=== PATIENT | female | born 1980 | race Native Hawaiian/Other Pacific Islander ===

== ENCOUNTER 2019-02-02 11:27 | Emergency (ER) | payer BC ==
[2019-02-02 11:27] VITALS: BMI 33.7
[2019-02-02 11:49] VITALS: RESP 18
[2019-02-02] MEDS ORDERED: Atrop/Hyosc/Scopal/PB Elixir (120 ml) PO STA (12:43)
[2019-02-02] MEDS ORDERED: Alum-Mag Hydrox-Simethicone Susp (30 mL) PO STA (12:43)
[2019-02-02] MEDS ORDERED: Sodium Chloride 0.9% 1,000 ML IV STA (12:43)
[2019-02-02 13:03] LABS: BASO # 0.02 K/mm3 (0.0-2.0); BASO % 0.1 % (0.0-3.0); EOS # 0.1 (0.0-0.7); EOS % 0.5 % (1.5-5.0); HEMOGLOBIN 11.6 g/dL (12.0-16.0); LYMPH # 1.7 (1.2-3.4); LYMPH % 11.7 % (22.0-35.0); MEAN CELL VOLUME 68.4 fl (80.0-105.0); MEAN CORPUSCULAR HEMOGLOBIN 20.9 pg (25.0-35.0); MEAN CORPUSCULAR HGB CONC 30.6 g/dl (31.0-37.0); MONO # 0.5 (0.1-0.6); MONO % 3.4 % (1.0-6.0); PLATELET COUNT 230 10^3/uL (120.0-450.0); RBC 5.54 10^6/uL (3.5-6.1); RED CELL DISTRIBUTION WIDTH 16.5 % (11.5-14.5); WHITE BLOOD COUNT 14.6 10^3/uL (4.5-11.0)
--- NOTE | 2019-02-02 13:03 | ED PDOC ---
Arrival/HPI - General Chief Complaint: Abdominal Pain Historian: Patient - History of Present Illness Narrative History of Present Illness (Text): 02/02/19 12:55 38 year old female, whose past medical history includes cholecystectomy, who presents to the Emergency Department complaining of nausea, vomiting, and diarrhea onset this morning. Patient reports that she was cooking when symptoms began and states that she did not have anything to eat. She also reports that she cooked and ate "egg plant and rice" last night. She endorses taking imodium for her diarrhea and states that she vomited right after. Patient reports a clear, non-bloody episodes of vomiting. She endorses 5 episodes of diarrhea, but denies any bloody stool. She reports an associated abdominal pain, described as cramping. She also reports that she experienced similar symptoms "a couple years ago" where she was found to have a stomach virus, given IV fluids and sent home. She currently denies any fever, chills, dizziness, chest pain, palpitations, SOB, nausea, recent travel or any other complaints. Her LNMP was on January 16. Time/Duration: 24 hours Symptom Onset: Gradual Symptom Course: Unchanged Activities at Onset: Light Context: Home Past Medical History - Provider Review Nursing Documentation Reviewed: Yes - Past History Past History: No Previous - Infectious Disease Hx of Infectious Diseases: None - Cardiac Hx Cardiac Disorders: No - Pulmonary Hx Respiratory Disorders: No - Endocrine/Metabolic Hx Endocrine Disorders: No - Hematological/Oncological Hx Blood Transfusions: No Hx Blood Transfusion Reaction: No - Musculoskeletal/Rheumatological Hx Falls: No - Psychiatric Hx Depression: No Hx Emotional Abuse: No Hx Physical Abuse: No Hx Substance Use: No - Surgical History Hx Section: Yes - Anesthesia Hx Anesthesia Reactions: No Hx Malignant Hyperthermia: No - Suicidal Assessment Feels Threatened In Home Enviroment: No Family/Social History - Physician Review Nursing Documentation Reviewed: Yes Family/Social History: Unknown Family HX Smoking Status: Never Smoked Hx Alcohol Use: No Hx Substance Use: No Allergies/Home Meds Allergies/Adverse Reactions: Allergies No Known Allergies Allergy (Verified 11/10/12 15:17) Review of Systems - Physician Review All systems were reviewed & negative as marked: Yes - Review of Systems Constitutional: absent: Fevers Respiratory: absent: SOB, Cough Cardiovascular: absent: Chest Pain, Palpitations Gastrointestinal: Abdominal Pain, Diarrhea, Nausea, Vomiting Musculoskeletal: absent: Back Pain, Neck Pain Neurological: absent: Dizziness Endocrine: absent: Diaphoresis Psychiatric: absent: Anxiety Physical Exam Vital Signs Reviewed: Yes Vital Signs Temp Pulse Resp BP Pulse Ox 02/02/19 11:46 98 F 78 18 160/99 H 99 Temperature: Afebrile Blood Pressure: Hypertensive Pulse: Regular Respiratory Rate: Normal Appearance: Positive for: Well-Appearing, Non-Toxic, Comfortable Pain Distress: None Mental Status: Positive for: Alert and Oriented X 3 - Systems Exam Head: Present: Atraumatic, Normocephalic Pupils: Present: PERRL Extroacular Muscles: Present: EOMI Conjunctiva: Present: Normal Mouth: Present: Moist Mucous Membranes Respiratory/Chest: Present: Clear to Auscultation, Good Air Exchange. No: Respiratory Distress, Accessory Muscle Use Cardiovascular: Present: Regular Rate and Rhythm, Normal S1, S2. No: Murmurs Abdomen: No: Tenderness, Distention, Peritoneal Signs, Rebound, Guarding Upper Extremity: Present: Normal Inspection. No: Cyanosis, Edema Lower Extremity: Present: Normal Inspection. No: Edema Neurological: Present: GCS=15, Speech Normal Skin: Present: Warm, Dry, Normal Color. No: Rashes Psychiatric: Present: Alert, Oriented x 3, Normal Insight, Normal Concentration Medical Decision Making ED Course and Treatment: 02/02/19 13:04 Impression: 38 year old female presents to the Emergency Department complaining of nausea, vomiting, and diarrhea onset this morning. Differential Diagnosis included but are not limited to: -- Gastroenteritis -- Pancreatitis. Plan: -- EKG -- Basic labs -- CXR -- IV Fluids -- UA -- Urine test -- Maalox -- Elixir -- Pepcid -- Reglan -- Reassess and disposition Prior Visits: Notes and results from previous visits were reviewed. Progress Notes: - Lab Interpretations Lab Results: 02/02/19 12:35 02/02/19 14:10 Lab Results 02/02/19 14:10: Sodium 138, Potassium 4.4, Chloride 105, Carbon Dioxide 22, Anion Gap 15, BUN 15, Creatinine 0.6 L, Est GFR ( Amer) > 60, Est GFR (Non-Af Amer) > 60, Random Glucose 113 H, Calcium 9.2, Magnesium 2.0, Total Bilirubin 0.3, AST 20, ALT 8, Alkaline Phosphatase 80, Total Protein 8.2, Albumin 4.5, Globulin 3.7, Albumin/Globulin Ratio 1.2, Lipase 93 02/02/19 12:35: Urine Color Yellow, Urine Appearance Clear, Urine pH 5.5, Ur Specific Aline >= 1.030, Urine Protein 30 H, Urine Glucose (UA) Negative, Urine Ketones Negative, Urine Blood Moderate H, Urine Nitrate Negative, Urine Bilirubin Negative, Urine Urobilinogen 0.2, Ur Leukocyte Esterase Negative, Urine RBC 1 - 3 H, Urine WBC 0 - 2, Ur Epithelial Cells 3 - 4, Urine Bacteria Trace, Hyaline Casts 0 - 2 02/02/19 12:35: PT 11.8, INR 1.04, APTT 29.0 02/02/19 12:35: WBC 14.6 H, RBC 5.54, Hgb 11.6 L, Hct 37.9, MCV 68.4 L, MCH 20.9 L, MCHC 30.6 L, RDW 16.5 H, Plt Count 230, Neut % (Auto) 84.3 H, Lymph % (Auto) 11.7 L, Pender % (Auto) 3.4, Eos % (Auto) 0.5 L, Baso % (Auto) 0.1, Lymph # (Auto) 1.7, Pender # (Auto) 0.5, Eos # (Auto) 0.1, Baso # (Auto) 0.02, Absolute Neuts (auto) 12.27 H I have reviewed the lab results: Yes - RAD Interpretation Narrative RAD Interpretations (Text): 02/02/19 14:16 Chest X-ray reviewed by radiologist, shows FINDINGS: LUNGS: The lungs are well inflated and clear. PLEURA: No pleural effusions or pneumothorax. CARDIOVASCULAR: Mild cardiomegaly. No aortic atherosclerotic calcifications present. OSSEOUS STRUCTURES: Within normal limits for the patient's age. VISUALIZED UPPER ABDOMEN: Normal. OTHER FINDINGS: None. IMPRESSION: No active pulmonary disease. Mild cardiomegaly. Radiology Orders: 02/02/19 12:09 CHEST PORTABLE [RAD] Stat Surgical Supplies Sterilizer: Radiologist - EKG Interpretation EKG Interpretation (Text): 02/02/19 13:30 EKG reviewed, shows NSR at 75 bpm, LVH, no ST elevations, no T wave inversions, normal QT interval. Interpreted by ED Physician: Yes Type: 12 lead EKG - Medication Orders Current Medication Orders: Sodium Chloride (Sodium Chloride 0.9%) 1,000 mls @ 999 mls/hr IV .Q1H1M STA Stop: 02/02/19 13:43 Last Admin: 02/02/19 12:52 Dose: 999 mls/hr eMAR Start Stop Document 02/02/19 12:52 OCS (Rec: 02/02/19 12:53 OCS [facility] [place] Intravenous Solution Start Date 02/02/19 Start Time 12:53 End Date 02/02/19 End time 13:54 Total Infusion Time 61 Discontinued Medications Al Hydrox/Mg Hydrox/Simethicone (Maalox Plus 30 Ml) 30 ml PO STAT STA Stop: 02/02/19 12:44 Last Admin: 02/02/19 12:52 Dose: 30 ml Belladonna/Phenobarbital ( Elixir) 5 ml PO STAT STA Stop: 02/02/19 12:44 Famotidine (Pepcid) 20 mg IVP STAT STA Stop: 02/02/19 12:44 Last Admin: 02/02/19 12:52 Dose: 20 mg IVP Administration Document 02/02/19 12:52 OCS (Rec: 02/02/19 12:52 [facility] [place] Charges for Administration # of IVP Administrations 1 Metoclopramide HCl (Reglan) 10 mg IVP STAT STA Stop: 02/02/19 12:44 Last Admin: 02/02/19 12:52 Dose: 10 mg IVP Administration Document 02/02/19 12:52 OCS (Rec: 02/02/19 12:52 OCS [facility] [place] Charges for Administration # of IVP Administrations 1 - Scribe Statement The provider has reviewed the documentation as recorded by the Scribe Alfredo Ríos, training with Josephine Lopez. All medical record entries made by the Shaileshibalem were at my direction and personally dictated by me. I have reviewed the chart and agree that the record accurately reflects my personal performance of the history, physical exam, m edical decision making, and the department course for this patient. I have also personally directed, reviewed, and agree with the discharge instructions and disposition. Disposition/Present on Arrival - Present on Arrival Any Indicators Present on Arrival: No History of DVT/PE: No History of Uncontrolled Diabetes: No Urinary Catheter: No History of Decub. Ulcer: No History Surgical Site Infection Following: None - Disposition Have Diagnosis and Disposition been Completed?: Yes Diagnosis: Gastroenteritis Disposition Time: 15:34 Patient Plan: Discharge Condition: STABLE Discharge Instructions (ExitCare): Gastroenteritis (ED) Print Language: HUNGARIAN Additional Instructions: All medical record entries made by the Scribe were at my direction and personally dictated by me. I have reviewed the chart and agree that the record accurately reflects my personal performance of the history, physical exam, medical decision making, and the department course for this patient. I have also personally directed, reviewed, and agree with the discharge instructions and disposition Please take medications as prescribed Try to schedule an appointment with a GI specialist. Prescriptions: Famotidine [Pepcid] 40 mg PO DAILY #10 tablet Ondansetron HCl [Zofran] 4 mg PO PRN PRN #6 tablet PRN Reason: Nausea/Vomiting Referrals: Gertrudis Jorge MD [Primary Care Provider] - Follow up with primary Taco Alan MD [Staff Provider] - Follow up with primary Forms: ID [employer] (Bulgarian)
[2019-02-02 13:07] LABS: PH,URINE 5.5 (4.7-8.0); URINE BILIRUBIN NEGATIVE (NEGATIVE); URINE BLOOD MODERATE (NEGATIVE); URINE GLUCOSE (UA) NEGATIVE (NEGATIVE); URINE LEUKOCYTE ESTERASE NEGATIVE Leu/uL (NEGATIVE); URINE PROTEIN 30 mg/dL (<30 mg/dL); URINE UROBILINOGEN 0.2 E.U./dL (<1 E.U./dL)
[2019-02-02 13:09] LABS: URINE APPEARANCE CLEAR (CLEAR); URINE COLOR YELLOW (YELLOW)
[2019-02-02 13:16] LABS: INR 1.04; PROTHROMBIN TIME 11.8 SECONDS (9.4-12.5)
[2019-02-02 13:41] LABS: URINE BACTERIA TRACE /hpf; URINE HYALINE CAST 0 - 2 /hpf; URINE WBC 0 - 2 /hpf (0-6)
--- NOTE | 2019-02-02 13:55 | RAD ---
Date of service: 02/02/2019 HISTORY: abdominal pain COMPARISON: No prior. FINDINGS: LUNGS: The lungs are well inflated and clear. PLEURA: No pleural effusions or pneumothorax. CARDIOVASCULAR: Mild cardiomegaly. No aortic atherosclerotic calcifications present. OSSEOUS STRUCTURES: Within normal limits for the patient's age. VISUALIZED UPPER ABDOMEN: Normal. OTHER FINDINGS: None. IMPRESSION: No active pulmonary disease. Mild cardiomegaly.
[2019-02-02 14:37] LABS: ALB/GLOB RATIO 1.2 (1.1-1.8); ALBUMIN 4.5 g/dL (3.0-4.8); ALT/SGPT 8 U/L (7-56); AST/SGOT 20 U/L (14-36); BLOOD UREA NITROGEN 15 mg/dL (7-21); CALCIUM 9.2 mg/dL (8.4-10.5); GFR NON-AFRICAN AMERICAN > 60; LIPASE 93 U/L (23-300)
[2019-02-02 17:00] VITALS: BP 174/97; PULSE 75; TEMP 97.9; O2SAT 100
--- NOTE | 2019-02-02 17:07 | CARD ---
APPROVED REPORT Date of service: 02/02/2019 EKG Measurement Heart [id number] <Conclusion> Normal sinus rhythm Voltage criteria for left ventricular hypertrophy Inferior infarct, age undetermined Abnormal ECG
== END 2019-02-02 16:24 | disposition home or self-care (01) ==
LOC: ED 11:27
DX: K52.9 Noninfective gastroenteritis and colitis, unspecified (principal)
CPT/HCPCS: 71045; 80053; 81001; 81025; 83690; 83735; 85025; 85610; 85730; 93005; 96361; 96374; 96375; 99283; J2765; J7030